=== PATIENT | male | born 1945 ===

== ENCOUNTER 2023-08-02 05:37 | Observation (INO) | payer OTHER ==
[2023-08-01 09:29] VITALS: BMI 23.7
[2023-08-02] MEDS ORDERED: Ondansetron PF 4 MG/2 ML Vial ONE (08:14)
[2023-08-02] MEDS ORDERED: PROPOFOL 40 ML ONE (08:14)
[2023-08-02] MEDS ORDERED: SUGAMMADEX SODIUM 200 MG/2 ML VIAL ONE (08:14)
[2023-08-02] MEDS ORDERED: Lidocaine 1% PF 5 ML VIAL ONE (08:14)
[2023-08-02] MEDS ORDERED: Dexamethasone 4 mg/ml Vial ONE (08:14)
[2023-08-02] MEDS ORDERED: fentaNYL 50 mcg/mL 1 mL Vial ONE (08:14)
[2023-08-02] MEDS ORDERED: EPINEPHrine 1 MG/ML VIAL ONE (08:14)
[2023-08-02] MEDS ORDERED: Rocuronium Bromide 10 MG/ML (10ML VIAL) ONE (08:14)
[2023-08-02] MEDS ORDERED: Ondansetron PF 4 MG/2 ML Vial IVP PRN (08:15)
[2023-08-02] MEDS ORDERED: Ondansetron ODT 4 MG TAB PO PRN (08:15)
[2023-08-02] MEDS ORDERED: Lidocaine 4% PF 5 ML AMP ONE (08:21)
[2023-08-02] MEDS ORDERED: PHENYLEPHRINE-NS 100 MCG/ML 10 ML SYRINGE ONE (08:21)
[2023-08-02] MEDS ORDERED: ePHEDrine Sulfate 50 MG/10 ML VIAL ONE (08:26)
[2023-08-02] MEDS ORDERED: Glycopyrrolate 0.2 MG/ML 5 ML SYRINGE ONE (09:27)
[2023-08-02] MEDS: Fenofibrate Nanocrystallized 145 MG TAB PO SCH (12:39)
[2023-08-02] MEDS: Acetaminophen 325 MG TAB PO PRN (12:40)
[2023-08-02] MEDS: Glimepiride 4 MG TAB PO SCH (12:40)
[2023-08-02] MEDS: Benzocaine/Menthol 1 LOZ LOZ PO PRN (12:41)
[2023-08-02 13:44] LABS: Hematocrit 37.5 % (38.8-50.0); Hemoglobin 12.3 g/dL (13.5-17.5); Mean Corpuscular HGB CONC 32.8 g/dL (32.0-36.0); Mean Corpuscular Volume 97.7 fl (81.2-95.1); Mean Platelet Volume 10.5 fl (7.4-10.4); Platelet Count 205 10x3/uL (150-450); RBC Distribution Width 14.6 % (11.5-14.5); Red Blood Cell (RBC) Count 3.84 10x6/uL (4.32-5.72); White Blood Cell (WBC) Count 5.6 10x3/uL (3.5-10.5)
[2023-08-02 13:59] LABS: Anion Gap 12 mmol/L (10-20); BUN (Urea Nitrogen) 11 mg/dL (8.4-25.7); Calc. Creatinine Clearance 65 mL/min (70-130); Calcium 8.8 mg/dL (7.8-10.44); Carbon Dioxide 22 mmol/L (23-31); Chloride 105 mmol/L (98-107); Cholesterol 171 mg/dl (< 200 Desired); Estimated GFR 73; Glucose 157 mg/dL (83-110); HDL Cholesterol 9 mg/dL (>60 Neg Risk); Potassium 4.1 mmol/L (3.5-5.1); Sodium 135 mmol/L (136-145); Triglycerides 427 mg/dL (Less than 150)
[2023-08-02 14:44] LABS: Troponin I 0.017 ng/mL (< 0.028)
[2023-08-02] MEDS: Rosuvastatin 20 MG TAB PO SCH (20:56)
[2023-08-02] MEDS: Pioglitazone HCl 15 MG TAB PO SCH (20:56)
[2023-08-02] MEDS: Melatonin 3 MG TAB PO PRN (20:56)
[2023-08-02] MEDS: Ibuprofen 200 MG TAB PO PRN (21:03)
[2023-08-02 22:48] LABS: Hemoglobin A1c 6.1 % (4.0-6.0)
[2023-08-03] MEDS: FLU VACC QS2023(65UP)/MF59C/PF 60 MCG/0.5 ML SYRINGE IM ONE (07:52)
[2023-08-03 08:10] VITALS: BP 124/72; TEMP 98.5
== END 2023-08-03 08:31 | disposition home or self-care (01) ==
LOC: CSHSDC 05:37 → CSHTELE 08:15
PROVIDERS: ADMIT Otolaryngology Otolaryngic Allergy; ATTEND Otolaryngology Otolaryngic Allergy
PROC: 0CBM8ZX Excision of Pharynx, Via Natural or Artificial Opening Endoscopic, Diagnostic (ICD-10-PCS; principal; 2023-08-02)
PROC: B246ZZZ Ultrasonography of Right and Left Heart (ICD-10-PCS; 2023-08-02)
DX: C10.9 Malignant neoplasm of oropharynx, unspecified (principal); I07.1 Rheumatic tricuspid insufficiency; I45.9 Conduction disorder, unspecified; I25.10 Atherosclerotic heart disease of native coronary artery without angina pectoris; E11.39 Type 2 diabetes mellitus with other diabetic ophthalmic complication; H42 Glaucoma in diseases classified elsewhere; Z87.891 Personal history of nicotine dependence; Z90.49 Acquired absence of other specified parts of digestive tract; Z95.1 Presence of aortocoronary bypass graft
CPT/HCPCS: 31535; 80048; 80061; 82962 ×2; 83036; 83735; 84443; 84484; 85027; 93306; 94762; J0171; J3010; 36415; 36416; 88305; 88331; 88341; 88342; 93005; 93010; J1100; J2405; J2704